=== PATIENT | male | born 1960 | race Caucasian/White ===

== ENCOUNTER → 2016-06-29 | Day surgery (SDC) | payer OTHER ==
[~2016-06-29] VITALS: Ht 180.3 cm; Wt 71.0 kg
[~2016-06-29] MED LIST: *RESP: ALBUTEROL 2.5 MG/3 ML NEB (PRN) PERIprocedural Use ONLY NEB ONE; ACET1CAP18 PO; ACETAMINOPHEN 1000 MG/100 ML VIAL IV ONE; AMLO5 PO; ASPI1TAB69 PO; ATOR40TA16 PO; CEPH-459 PO; CIPR-9 PO; COLA100C3 PO; DEXAMETHASONE SOD PHOS 4 MG/ML VIAL ONE; DO NOT ADM ANY ANTICOAGULANT DRUGS XX PRN; FAMOTIDINE 20 MG/2 ML VIAL ONE; GABA300C5 PO; HYDRO.5%T TOPICAL; INSULIN HUMAN REGULAR 1,000 UNITS/10 ML VIAL SQ PRN; LACTATED RINGER'S 1000 ML IV SCH; LEVE500 PO; LEXA20TA PO; MELA3TAB23 PO; METOPROLOL TARTRATE 25 MG TAB PO PRN; MIDAZOLAM HCL 2 MG/2 ML VIAL ONE; ONDANSETRON HCL 4 MG/2 ML VIAL IV PUSH ONE; ONDANSETRON HCL 4 MG/2 ML VIAL IV PUSH PRN; OXYC1CAP PO; PERC5TAB12 PO; PLAV75TA29 PO; PROPOFOL 200 MG/20 ML AMP IV ONE; SERT-132 PO; SODIUM CHLORID 0.9% 500 ML IV SCH; TAMS0.4C4 PO; TEMA7.5C PO; VESI5TAB PO; ceFAZolin 1,000 MG/NS 100 ML IV SCH; ePHEDrine/NS 25 MG/5 ML SYR IV ONE; oxyCODONE/ACETAMINOPHEN 5 MG/325 MG TAB PO PRN
[2016-06-29 08:21] VITALS: BP 116/81; PULSE 80; RESP 20; TEMP 98.6; O2SAT 93
[2016-06-29 09:01] LABS: AUTOMATED NEUTROPHIL # 6.4 TH/MM3 (1.8-7.7); BASOPHIL % 0.5 % (0.0-2.0); EOSINOPHIL # 0.3 TH/MM3 (0-0.4); EOSINOPHIL % 2.8 % (0.0-4.0); HEMATOCRIT 46.2 % (39.0-51.0); HEMO FLAGS DIFF FINAL; LYMPH % 25.6 % (9.0-44.0); LYMPHOCYTE # 2.6 TH/MM3 (1.0-4.8); MEAN CELL VOLUME 84.1 FL (80.0-100.0); MEAN CORPUSCULAR HEMOGLOBIN 28.3 PG (27.0-34.0); MEAN CORPUSCULAR HGB CONC 33.6 % (32.0-36.0); MONO % 9.3 % (0.0-8.0); NEUT % 61.8 % (16.0-70.0); PLATELET COUNT 221 TH/MM3 (150-450); RED CELL DISTRIBUTION WIDTH 17.4 % (11.6-17.2); WHITE BLOOD COUNT 10.3 TH/MM3 (4.0-11.0)
--- NOTE | 2016-06-29 10:54 | HHI.PR ---
Immediate Post Op Note Procedure Date: Jun 29, 2016 Pre Op Diagnosis: Bladder lesions rule out malignancy Post Op Diagnosis: Same Surgeon: Anurag Littlejohn [place] Operator(s): None Procedure: Cystoscopy with bladder biopsies and fulguration Findings: Raised erythematous lesions to bladder Additional Information: Indication for procedure: Case of a pleasant 55-year-old gentleman with recent history gross hematuria. Cystoscopic evaluation in the office demonstrated 2 raised erythematous lesions suspicious for malignancy. Presents today for cystoscopy with biopsy and fulguration. Operative procedure in detail: Patient was brought to the operating room suite and placed supine on the cystoscopy table. He was next prepped and draped in normal sterile fashion after being placed under general anesthesia. After appropriate timeout was undertaken I proceeded with cystoscopic evaluation. The rigid cystoscope with the 22 Tajik sheath and 30 lens was utilized. The urethra was patent without stricture formation, the prostate was nonobstructing. Further passive cystoscope within the urinary bladder revealed moderate trabeculation to the bladder with 2 raised areas that were previously seen in the office. The flexible cup biopsy forcep was next utilized and the 2 areas described above were biopsied and subsequently fulgurated with the Bugbee electrode. The bladder was drained of all irrigant fluid and cystoscope was withdrawn. The patient tolerated the procedures without complications and was subsequently transferred to the PACU in satisfactory condition. Complications: None Specimen(s) removed: Bladder biopsies 2 sent to path Estimated blood loss: Minimal Anesthesia: General Drains: None Fluids: refer to anesthesia record Patient to: PACU Patient Condition: Good Date/Time of Procedure: SEE SURGICAL CARE RECORD Anurag Littlejohn MD Jun 29, 2016 10:54
[2016-06-29 12:30] VITALS: BP 114/82; PULSE 80; RESP 20; TEMP 97.6; O2SAT 94
== END | disposition home or self-care (01) ==
LOC: HSDC 07:41
PROVIDERS: ATTEND Urology
DX: N30.80 Other cystitis without hematuria (principal); R31.0 Gross hematuria
CPT/HCPCS: 00910; 52204; 85025; 88305; 94664; J0131; J0690; J1100; J2250; J2405; J3010; J7613

== ENCOUNTER 2016-07-16 19:40 | Emergency (ER) | payer OTHER ==
[~2016-07-16] VITALS: Ht 180.3 cm; Wt 70.0 kg
[~2016-07-16 19:40] MED LIST changes: -*RESP: ALBUTEROL 2.5 MG/3 ML NEB (PRN) PERIprocedural Use ONLY NEB ONE; -ACETAMINOPHEN 1000 MG/100 ML VIAL IV ONE; -ATOR40TA16 PO; -CIPR-9 PO; -DEXAMETHASONE SOD PHOS 4 MG/ML VIAL ONE; -DO NOT ADM ANY ANTICOAGULANT DRUGS XX PRN; -FAMOTIDINE 20 MG/2 ML VIAL ONE; -HYDRO.5%T TOPICAL; -INSULIN HUMAN REGULAR 1,000 UNITS/10 ML VIAL SQ PRN; -LACTATED RINGER'S 1000 ML IV SCH; -MELA3TAB23 PO; -METOPROLOL TARTRATE 25 MG TAB PO PRN; -MIDAZOLAM HCL 2 MG/2 ML VIAL ONE; -ONDANSETRON HCL 4 MG/2 ML VIAL IV PUSH ONE; -ONDANSETRON HCL 4 MG/2 ML VIAL IV PUSH PRN; -PROPOFOL 200 MG/20 ML AMP IV ONE; -SODIUM CHLORID 0.9% 500 ML IV SCH; -VESI5TAB PO; -ceFAZolin 1,000 MG/NS 100 ML IV SCH; -ePHEDrine/NS 25 MG/5 ML SYR IV ONE; -oxyCODONE/ACETAMINOPHEN 5 MG/325 MG TAB PO PRN
[2016-07-16 19:52] VITALS: BP 121/86; PULSE 92; RESP 18; TEMP 98.7; O2SAT 94
--- NOTE | 2016-07-16 19:56 | PD ---
HPI Chief Complaint: Bleeding Time Seen by Provider: 19:56 Travel History International Travel<30 days: No Contact w/Intl Traveler<30days: No Traveled to known affect area: No History of Present Illness HPI 55-year-old male with a history of hypertension, hyperlipidemia, CAD with stent 1, CVA with left-sided paralysis is brought to the emergency department by EMS for evaluation of hematuria. The patient resides at [facility]. He states he has had hematuria for the past 3 weeks but that today he has been passing large blood clots in his urine. The custodial staff approximated that he had passed about 600 cc of blood from his urine. The patient states this has never happened to him before. He apparently did have a cystoscopy and a bladder biopsy this month by Dr. Littlejohn, unsure of the results of the biopsy. He states he has had some mild nausea today. He denies any fever, chills, vomiting, diarrhea, constipation, burning with urination, painful urination, abdominal pains, chest pain, shortness of breath, scrotal pain. The patient states he takes aspirin and Plavix. No other complaints. PFSH Past Medical History Hx Anticoagulant Therapy: Yes Arthritis: No Asthma: No Autoimmune Disease: No Anxiety: No Depression: No Heart Rhythm Problems: No Cancer: No Cardiac Catheterization: Yes Cardiovascular Problems: Yes (ASCVD) High Cholesterol: Yes Chemotherapy: No Chest Pain: No Congestive Heart Failure: No Cerebrovascular Accident: Yes Diabetes: No Diminished Hearing: No Endocrine: No Gastrointestinal Disorders: Yes (CONSTIPATION) GERD: No Genitourinary: Yes (BPH) Hepatitis: Yes (C) Hiatal Hernia: No Hypertension: Yes Immune Disorder: No Kidney Stones: No Musculoskeletal: No Neurologic: Yes (LEFT CVA/ HEMIPLEGIA/ HEMIPARESIS, SEIZURE HX) Psychiatric: Yes (ANXIETY/ DEPRESSION) Reproductive: No Respiratory: No Myocardial Infarction: Yes Radiation Therapy: No Renal Failure: No Seizures: Yes Sickle Cell Disease: No Sleep Apnea: No Thyroid Disease: No Ulcer: No Past Surgical History Abdominal Surgery: No AICD: No Arteriovenous Shunt: No Cardiac Surgery: Yes (Matt CEA) Coronary Stent: Yes (z1) Ear Surgery: No Endocrine Surgery: No Eye Surgery: No Genitourinary Surgery: Yes ( YOUTH) Gynecologic Surgery: No Insulin Pump: No Joint Replacement: No Neurologic Surgery: Yes (craniotomy) Oral Surgery: Yes (complete teeth extraction) Pacemaker: No Thoracic Surgery: No Other Surgery: Yes Social History Alcohol Use: Yes (BEER 2 X A WEEK) Tobacco Use: Yes (1-1.5 PK DAY) Substance Use: No Allergies-Medications (Allergen,Severity, Reaction): Coded Allergies: No Known Allergies (Verified , 07/16/16) Reported Meds & Prescriptions Reported Meds & Active Scripts Active Percocet (Oxycodone-Acetaminophen) 5-325 mg Tab 1 Tab PO Q6H PRN Keflex (Cephalexin) 250 Mg Cap 250 Mg PO TID Reported Sertraline (Sertraline HCl) 50 Mg Tab 50 Mg PO DAILY Tylenol (Acetaminophen) 325 Mg Cap 650 Mg PO Q4HR PRN Oxycodone (Oxycodone HCl) 5 Mg Cap 5 Mg PO Q4H PRN Keppra (Levetiracetam) 500 Mg Tab 1,000 Mg PO BID Colace (Docusate Sodium) 100 Mg Cap 100 Mg PO BID Temazepam 7.5 Mg Cap 7.5 Mg PO HS PRN Tamsulosin (Tamsulosin HCl) 0.4 Mg Cap 0.4 Mg PO HS Norvasc (Amlodipine Besylate) 5 Mg Tab 5 Mg PO DAILY Lexapro (Escitalopram Oxalate) 20 Mg Tab 20 Mg PO DAILY Gabapentin 300 Mg Cap 300 Mg PO HS Plavix (Clopidogrel Bisulfate) 75 Mg Tab 75 Mg PO DAILY Aspirin 81 Mg Tabdr 162 Mg PO DAILY Review of Systems Except as stated in HPI: all other systems reviewed are Neg Physical Exam Narrative GENERAL: Well-nourished and well-developed pleasant patient in no acute distress. Chronic left-sided deficits. SKIN: Warm and dry. HEAD: Normocephalic and atraumatic. EYES: No injection, drainage, or hyphema noted. PERRLA. EOMI. ENT: No nasal drainage noted. Oropharynx is clear. NECK: Supple and the trachea is midline. CARDIOVASCULAR: Regular rate and rhythm. RESPIRATORY: Breath sounds are equal bilaterally with no accessory muscle use, wheezing, rhonchi, or crackles. GASTROINTESTINAL: Abdomen is soft, non-tender, and nondistended. MUSCULOSKELETAL: No obvious deformities, swelling, cyanosis, or ecchymosis is present throughout the upper and lower extremities. NEUROLOGICAL: Awake, alert, and oriented. Normal speech and gait. Cranial nerves are grossly intact. Data Data Last Documented VS Vital Signs Date Time Temp Pulse Resp B/P Pulse Ox O2 Delivery O2 Flow Rate FiO2 07/16/16 20:10 95 Room Air 07/16/16 20:10 102/73 07/16/16 19:52 98.7 92 18 Orders Complete Blood Count With Diff (07/16/16 19:56) Comprehensive Metabolic Panel (07/16/16 19:56) Urinalysis - C+S If Indicated (07/16/16 19:56) Iv Access Insert/Monitor (07/16/16 19:56) Ecg Monitoring (07/16/16 19:56) Oximetry (07/16/16 19:56) Sodium Chloride 0.9% Flush (Ns Flush) (07/16/16 20:00) Urine Culture (07/16/16 20:00) Labs Laboratory Tests Test 07/16/16 20:00 White Blood Count 10.0 TH/MM3 Red Blood Count 4.83 MIL/MM3 Hemoglobin 13.7 GM/DL Hematocrit 40.6 % Mean Corpuscular Volume 84.1 FL Mean Corpuscular Hemoglobin 28.3 PG Mean Corpuscular Hemoglobin 33.6 % Concent Red Cell Distribution Width 17.1 % Platelet Count 270 TH/MM3 Mean Platelet Volume 8.5 FL Neutrophils (%) (Auto) 64.8 % Lymphocytes (%) (Auto) 24.7 % Monocytes (%) (Auto) 7.5 % Eosinophils (%) (Auto) 2.6 % Basophils (%) (Auto) 0.4 % Neutrophils # (Auto) 6.5 TH/MM3 Lymphocytes # (Auto) 2.5 TH/MM3 Monocytes # (Auto) 0.8 TH/MM3 Eosinophils # (Auto) 0.3 TH/MM3 Basophils # (Auto) 0.0 TH/MM3 CBC Comment DIFF FINAL Differential Comment Urine Color LIGHT-BROWN Urine Turbidity CLOUDY Urine pH 8.0 Urine Specific [place] 1.033 Urine Protein GREATER THAN 600 mg/dL Urine Glucose (UA) 70 mg/dL Urine Ketones NEG mg/dL Urine Occult Blood MOD Urine Nitrite NEG Urine Bilirubin NEG Urine Urobilinogen LESS THAN 2.0 MG/DL Urine Leukocyte Esterase NEG Urine RBC /hpf Urine WBC 4 /hpf Urine Squamous Epithelial 0-5 /hpf Cells Urine Bacteria RARE /hpf Microscopic Urinalysis Comment CULTURE INDICATED Sodium Level 139 MEQ/L Potassium Level 3.8 MEQ/L Chloride Level 102 MEQ/L Carbon Dioxide Level 30.7 MEQ/L Anion Gap 6 MEQ/L Blood Urea Nitrogen 15 MG/DL Creatinine 0.89 MG/DL Estimat Glomerular Filtration 89 ML/MIN Rate Random Glucose 112 MG/DL Calcium Level 8.5 MG/DL Total Bilirubin 0.2 MG/DL Aspartate Amino Transf 46 U/L (AST/SGOT) Alanine Aminotransferase 98 U/L (ALT/SGPT) Alkaline Phosphatase 112 U/L Total Protein 7.1 GM/DL Albumin 3.2 GM/DL [facility] Medical Decision Making Medical Screen Exam Complete: Yes Emergency Medical Condition: Yes Differential Diagnosis Hemorrhagic cystitis versus UTI versus post op bleeding Narrative Course 55-year-old male is brought to the emergency department from his custodial facility for evaluation of gross hematuria. Patient is afebrile, vital signs are stable. While in the room the patient is able to produce a urine specimen which does show a large amount of gross blood. IV access is obtained, labs drawn and sent. I did review the EMR which shows on 06/29/16 the patient had an outpatient biopsy performed by Dr. Littlejohn of 2 raised erythematous lesions he saw on cystoscopy. 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 CBC is unremarkable. CMP shows slightly elevated LFTs, otherwise unremarkable. Urinalysis shows 600 protein, 70 glucose, moderate occult blood, innumerable red blood cells, rare bacteria. Culture is pending. The patient has no difficulty passing urine and does not have symptoms of urinary retention. He does have gross hematuria but has a known history of cystitis. His hemoglobin and hematocrit is within normal limits and labs are all reassuring. He's been hemodynamically stable here in the ED and without complaint. I discussed the case with my attending physician Dr. Jaquez who also evaluated the patient and agrees that the patient can be discharged to follow-up as an outpatient with his urologist. We'll place him on Cipro empirically for urinary tract infection. Diagnosis Primary Impression: Hematuria Referrals: Anurag Littlejohn MD Patient Instructions: Acute Hematuria (DC), General Instructions Additional Instructions: Take medications as prescribed with food and a full glass of water. Follow-up with your urologist within the week. Return to the ED for any acute worsening of symptoms. Med/Other Pt SpecificInfo: Prescription(s) given Scripts Ciprofloxacin (Cipro)500 Mg [id number] Mg PO BID 10 Days Ref 0 Prov:Audrey Jaquez MD 07/16/16 Disposition: 03 DISCHARGE TO SNF Condition: Stable Anahi Tinoco Jul 16, 2016 19:56
[2016-07-16] MEDS ORDERED: SODIUM CHLORIDE 0.9% FLUSH 5 ML FLUSH IVF PRN (20:00)
[2016-07-16 20:10] VITALS: BP 102/73; O2SAT 95
[2016-07-16 20:29] LABS: AUTOMATED NEUTROPHIL # 6.5 TH/MM3 (1.8-7.7); BASOPHIL % 0.4 % (0.0-2.0); EOSINOPHIL # 0.3 TH/MM3 (0-0.4); EOSINOPHIL % 2.6 % (0.0-4.0); HEMATOCRIT 40.6 % (39.0-51.0); HEMO FLAGS DIFF FINAL; LYMPH % 24.7 % (9.0-44.0); LYMPHOCYTE # 2.5 TH/MM3 (1.0-4.8); MEAN CELL VOLUME 84.1 FL (80.0-100.0); MEAN CORPUSCULAR HEMOGLOBIN 28.3 PG (27.0-34.0); MEAN CORPUSCULAR HGB CONC 33.6 % (32.0-36.0); MONO % 7.5 % (0.0-8.0); NEUT % 64.8 % (16.0-70.0); PLATELET COUNT 270 TH/MM3 (150-450); RED BLOOD COUNT 4.83 MIL/MM3 (4.50-5.90); RED CELL DISTRIBUTION WIDTH 17.1 % (11.6-17.2)
[2016-07-16 20:43] LABS: BLOOD, URINE MOD (NEG); COMMENT (UR) CULTURE INDICATED; CULTURE IF INDICATED CULTURE INDICATED; GLUCOSE,URINE 70 mg/dL (NEG); KETONE, URINE NEG (NEG); NITRITE,URINE NEG (NEG)
[2016-07-16 20:44] LABS: ANION GAP 6 MEQ/L (5-15); AST (GOT) 46 U/L (15-37); BICARBONATE 30.7 MEQ/L (21.0-32.0); BLOOD UREA NITROGEN 15 MG/DL (7-18); CHLORIDE 102 MEQ/L (98-107); GLOMERULAR FILTRATION RATE 89 ML/MIN (>89); POTASSIUM 3.8 MEQ/L (3.5-5.1); SODIUM (NA) 139 MEQ/L (136-145)
[2016-07-16 20:46] LABS: URINE COLOR LIGHT-BROWN (YELLW/STRAW)
[2016-07-16 20:47] LABS: ALKALINE PHOSPHATASE 112 U/L (45-117); ALT (GPT) 98 U/L (12-78); SQUAMOUS EPITHELIAL CELL URINE 0-5 /hpf (0-5); TOTAL BILIRUBIN ADULT 0.2 MG/DL (0.2-1.0)
[2016-07-16 20:48] LABS: BACTERIA, URINE RARE /hpf
[2016-07-16] MEDS ORDERED: CIPR-9 PO (21:10)
--- NOTE | 2016-07-16 21:25 | PD ---
Physical Exam Date Seen by Provider: Jul 16, 2016 Narrative Patient is here for hematuria. Data Data Last Documented VS Vital Signs Date Time Temp Pulse Resp B/P Pulse Ox O2 Delivery O2 Flow Rate FiO2 07/16/16 20:10 95 Room Air 07/16/16 20:10 102/73 07/16/16 19:52 98.7 92 18 Orders Complete Blood Count With Diff (07/16/16 19:56) Comprehensive Metabolic Panel (07/16/16 19:56) Urinalysis - C+S If Indicated (07/16/16 19:56) Iv Access Insert/Monitor (07/16/16 19:56) Ecg Monitoring (07/16/16 19:56) Oximetry (07/16/16 19:56) Sodium Chloride 0.9% Flush (Ns Flush) (07/16/16 20:00) Urine Culture (07/16/16 20:00) Labs Laboratory Tests Test 07/16/16 20:00 White Blood Count 10.0 TH/MM3 Red Blood Count 4.83 MIL/MM3 Hemoglobin 13.7 GM/DL Hematocrit 40.6 % Mean Corpuscular Volume 84.1 FL Mean Corpuscular Hemoglobin 28.3 PG Mean Corpuscular Hemoglobin 33.6 % Concent Red Cell Distribution Width 17.1 % Platelet Count 270 TH/MM3 Mean Platelet Volume 8.5 FL Neutrophils (%) (Auto) 64.8 % Lymphocytes (%) (Auto) 24.7 % Monocytes (%) (Auto) 7.5 % Eosinophils (%) (Auto) 2.6 % Basophils (%) (Auto) 0.4 % Neutrophils # (Auto) 6.5 TH/MM3 Lymphocytes # (Auto) 2.5 TH/MM3 Monocytes # (Auto) 0.8 TH/MM3 Eosinophils # (Auto) 0.3 TH/MM3 Basophils # (Auto) 0.0 TH/MM3 CBC Comment DIFF FINAL Differential Comment Urine Color LIGHT-BROWN Urine Turbidity CLOUDY Urine pH 8.0 Urine Specific [place] 1.033 Urine Protein GREATER THAN 600 mg/dL Urine Glucose (UA) 70 mg/dL Urine Ketones NEG mg/dL Urine Occult Blood MOD Urine Nitrite NEG Urine Bilirubin NEG Urine Urobilinogen LESS THAN 2.0 MG/DL Urine Leukocyte Esterase NEG Urine RBC /hpf Urine WBC 4 /hpf Urine Squamous Epithelial 0-5 /hpf Cells Urine Bacteria RARE /hpf Microscopic Urinalysis Comment CULTURE INDICATED Sodium Level 139 MEQ/L Potassium Level 3.8 MEQ/L Chloride Level 102 MEQ/L Carbon Dioxide Level 30.7 MEQ/L Anion Gap 6 MEQ/L Blood Urea Nitrogen 15 MG/DL Creatinine 0.89 MG/DL Estimat Glomerular Filtration 89 ML/MIN Rate Random Glucose 112 MG/DL Calcium Level 8.5 MG/DL Total Bilirubin 0.2 MG/DL Aspartate Amino Transf 46 U/L (AST/SGOT) Alanine Aminotransferase 98 U/L (ALT/SGPT) Alkaline Phosphatase 112 U/L Total Protein 7.1 GM/DL Albumin 3.2 GM/DL MDM Supervised Visit with YANNA: Yes Narrative Course I, Dr. Jaquez, have reviewed the advance practice practitioner's documentation and am in agreement, met with the patient face to face, made the diagnosis, and the medical decision making was done by me. *My assessment and Findings: The patient is hemodynamically stable. His hemoglobin is 13.7. He is voiding without difficulty. He already has a relationship with a urologist. He is safe for discharge and outpatient follow- up. Diagnosis Primary Impression: Hematuria Referrals: Anurag Littlejohn MD Patient Instructions: General Instructions, Acute Hematuria (DC) Departure Forms: Tests/Procedures Additional Instruction: Take medications as prescribed with food and a full glass of water. Follow-up with your urologist within the week. Return to the ED for any acute worsening of symptoms. Scripts Ciprofloxacin (Cipro)500 Mg [id number] Mg PO BID 10 Days Ref 0 Prov:Audrey Jaquez MD 07/16/16 Disposition: 03 DISCHARGE TO SNF Condition: Stable Audrey Jaquez MD Jul 16, 2016 21:25
[2016-07-23] MEDS ORDERED: VESI5TAB PO (11:46)
[2016-07-23] MEDS ORDERED: HYDRO.5%T TOPICAL (14:55)
[2016-07-23] MEDS ORDERED: ATOR40TA16 PO (14:55)
== END 2016-07-16 21:36 ==
LOC: NEPA 19:40
DX: R31.0 Gross hematuria (principal); N39.0 Urinary tract infection, site not specified; R79.89 Other specified abnormal findings of blood chemistry; E78.00 Pure hypercholesterolemia, unspecified; I10 Essential (primary) hypertension; I25.2 Old myocardial infarction; F17.210 Nicotine dependence, cigarettes, uncomplicated
CPT/HCPCS: 80053; 81001; 85025; 87086; 99283